=== PATIENT | female | born 1950 | race Caucasian/White ===

== ENCOUNTER 2024-12-04 06:31 | Day surgery (SDC) | payer OTHER, SELFPAY ==
[2024-12-04] VITALS (9 sets, daily range): BP systolic 145–178; BP diastolic 73–91; BMI 19.8
[2024-12-04] MEDS: CELEBREX 200 MG PO (11:41)
[2024-12-04] MEDS: TYLENOL 1000 MG PO (11:41)
[2024-12-04] MEDS: NORMOSOL-R/PLASMALYTE-A 1000 IV (11:52)
--- NOTE | 2024-12-04 13:54 | W.IMMPOSTOP ---
Addendum entered and electronically signed by Bobo Ott MD 12/04/24 13:59:
Daughter, Annette, updated via phone
Original Note:
Surgical Immed Post Op Note
-
Primary Surgeon: Bobo tOt MD
Assisting Surgeon: None
Pre-op Diagnosis: Anal pain
Post-op Diagnosis: Anal pain
Procedure Performed: Exam under anesthesia, bilateral pudendal nerve block
Anesthesia Type: MAC with local
Specimen / Cultures: None
Estimated Blood Loss: 1 mL
Complications: None
Operative Findings: No obvious etiology identified for her pain; internal hemorrhoids appeared physiologic in size without irritation or bleeding; no masses, fissures or evidence of infection
--- NOTE | 2024-12-04 13:59 | OR.RPT ---
Operative Report
Operative Report
DATE OF OPERATION: 12/04/2024
SURGEON: Bobo Ott MD
PREOPERATIVE DIAGNOSIS: Anal pain
POSTOPERATIVE DIAGNOSIS: Anal pain
OPERATION: Exam under anesthesia, bilateral pudendal nerve block
ASSISTANTS:
1. None
ANESTHESIA: MAC w/ local
ESTIMATED BLOOD LOSS: 1 mL
FINDINGS:
1. No anorectal pathology identified to explain pain
2. Small/physiologic internal hemorrhoids without irritation or bleeding; no masses, fissures or evidence of infection
SPECIMENS:
1. None
DRAINS: None
COMPLICATIONS: None
INDICATIONS: The patient is a 74-year-old female who presents with perianal pain not associated with BMs. Pain can be significant and is episodic. On anorectal exam in the office, no obvious pathology was identified, but the exam was limited due
to stool and patient discomfort. Therefore, the patient was recommended to have an exam under anesthesia to ensure no occult pathology, such as infection, fissures, irritated hemorrhoids or masses. The operation was discussed with the patient in
detail, including the risks, benefits and alternatives. Risks described included, but not limited to bleeding, infection, urinary retention, inability to identify the cause of her pain and anesthetic risks. The patient's daughter understood and
agreed to proceed. The consent was signed by the daughter (patient lacks capacity) and placed in the chart.
PROCEDURE IN DETAIL: The patient was taken to the operating room. Sequential compression devices were placed bilaterally. The patient was placed on the operating table in prone position. Sedation was commenced without complication. Two seat belts
were secured around the legs and upper back. The buttocks were taped apart. The perineum was prepped and draped in the usual fashion. A time-out was performed verifying the correct patient, procedure, operative site, positioning, and special
equipment.
Local anesthesia used was a mixture of 60 mL of 0.25% Marcaine with epinephrine and 0.6 mg of dexamethasone. 40 mL was injected perianally at the beginning of the case. The anorectal exam was performed assessing all four quadrants of the anal canal
using Hill-Rivera retractors in progressively increasing size. There were no concerning lesions identified perianally, within the anal canal or in the distal rectum. Digital rectal exam was performed and there was no palpable masses or lesions.
There was no stenosis or hypertonicity of the internal sphincter. There is no proctitis or evidence of infection. No erythema or fluctuance. There were no anal fissures. There were small/physiologic internal hemorrhoids that were not irritated
or bleeding. An 18-gauge needle with 10 cc syringe was used to aspirate the ischiorectal space in 6 locations perianally and no purulent drainage was encountered.
The remaining 20 mL of local were injected. 5 mL was injected bilaterally for a pudendal nerve block. 10 mL was injected around the surgical site and perianally. Hemostasis was reassessed once more using the small Hill-Rivera and was confirmed.
A pea-sized amount of Dibucaine was then applied to the external portion of the wound.
At this point, the procedure was complete. All needle, sponge and instrument counts were correct. The patient tolerated the procedure well and was transferred to the recovery room in stable condition with gauze dressing in place secured with silk
tape.
DICTATED BY: Bobo Ott MD
[2024-12-04] MEDS: TRANDATE 10 MG IV (15:10)
--- NOTE | 2024-12-04 16:34 | PTCARENOTE ---
fast track patient post op c/o headache. Blood pressure elevated. Dr. Duque notified. Labatolol ordered. Pressure came down within 20 of patients pre op blood pressure. Dr. Duque spoke with patients daughter at bedside. Patient d/c home.
== END 2024-12-04 16:23 | disposition home or self-care (01) ==
LOC: SDS 06:31
PROVIDERS: ATTENDING PHYSICIAN Surgery; FAMILY PHYSICIAN Family Medicine
DX: K64.8 Other hemorrhoids (principal); K62.89 Other specified diseases of anus and rectum
CPT/HCPCS: 45990